=== PATIENT | female | born 1925 | race Caucasian/White ===

== ENCOUNTER 2017-06-02 12:14 | Emergency (ER) | payer MEDICARE, MEDICAID ==
[~2017-06-02] VITALS: Ht 162.6 cm; Wt 72.6 kg
[~2017-06-02 12:14] MED LIST: ACETAMINOPHEN-1 EAC1; COZAAR100 MG; HYDROCHLOROTH12.5 MG
--- NOTE | 2017-06-03 13:17 | EKG ---
[facility] [address] [facility] [place] [address] Signed Sinus rhythm with 1st degree AV block Left axis deviation Right bundle branch block Minimal voltage criteria for LVH, may be normal variant Abnormal ECG No previous ECGs available Confirmed by COOPER DONIS MD ([id number] on 06/03/2017 1:17:15 PM Electronically Signed By: COOPER DONIS MD 06/03/17 1317 PATIENT NAME: SHE ZEE Electrocardiogram DATE OF : [birth year] PHYSICIAN: COOPER DONIS MD REPORT #: [id number] REPORT IS CONFIDENTIAL AND NOT TO BE RELEASED WITHOUT AUTHORIZATION
== END 2017-06-02 15:35 | disposition home or self-care (01) ==
LOC: ED 12:14
DX: R51 Headache (principal); R41.0 Disorientation, unspecified; J44.9 Chronic obstructive pulmonary disease, unspecified; I10 Essential (primary) hypertension; Z87.891 Personal history of nicotine dependence; Z98.890 Other specified postprocedural states
CPT/HCPCS: 70450; 71010; 80053; 81001; 84484; 85025; 93005; 93010; 96374; 96375; 99284; J2270; J2405